=== PATIENT | male | born 1990 | race Caucasian/White ===

== ENCOUNTER 2019-08-22 21:09 | Emergency (ER) | payer OTHER ==
[~2019-08-22] VITALS: Ht 190.5 cm; Wt 101.8 kg
[2019-08-22 21:14] VITALS: BP 150/86; TEMP 97.3
[2019-08-22] MEDS ORDERED: TAMIFLU 75MG75 MG PO (22:20)
[2019-08-22 22:24] VITALS: PULSE 81
== END 2019-08-22 22:30 | disposition home or self-care (01) ==
LOC: COL.ER 21:09
DX: J11.1 Influenza due to unidentified influenza virus with other respiratory manifestations (principal)